=== PATIENT | male | born 1975 | race Two or more races ===

== ENCOUNTER 2020-05-21 18:15 | Emergency (ER) | payer OTHER ==
[~2020-05-21] VITALS: Ht 175.3 cm; Wt 86.2 kg
--- NOTE | 2020-05-21 19:25 | NUR ---
BIBS to the emergency department with complaints of ring stuck on his right ring finger for a month. He states he is attempted multiple times to cut the ring off unsuccessfully. He states been having "relationship problems" and this is the reason he is avoided medical care. Pt ambulatory to bed 13. was placed on a monitor, VSS. will cont to monitor,
[2020-05-21] MEDS ORDERED: BUPIVACAINE 0.5 % PF 150 MG/30 ML VIAL ONE (19:45)
[2020-05-21] MEDS ORDERED: LIDOCAINE 1% INJ 50 ML MDV IJ ONE ×2 (19:45→20:00)
[2020-05-21] MEDS ORDERED: CEFAZOLIN 1 GM in IV D5W 50 ML IV ONE (20:00)
[2020-05-21] MEDS ORDERED: BUPIVACAINE 0.5 % PF 150 MG/30 ML VIAL IJ ONE (20:00)
[2020-05-21] MEDS ORDERED: IV NS 0.9% 1,000 ML BAG IV ONE (20:00)
--- NOTE | 2020-05-21 20:10 | NUR ---
multiplex operator AT BED SIDE TO CUT THE RING
[2020-05-21] MEDS ORDERED: PIPERACILLIN /TAZOBACTAM 3.375 G VIAL IV ONE (20:21)
[2020-05-21 20:24] LABS: BASOPHILS # (AUTO) 0.1 /CMM (0.0-0.2); BASOPHILS % (AUTO) 0.8 % (0.0-2.0); EOSINOPHILS % (AUTO) 3.5 % (0.0-6.0); HEMATOCRIT 47 % (39-51); HEMOGLOBIN 15.6 g/dL (13.5-17.5); LYMPHOCYTES # (AUTO) 2.3 /CMM (0.8-4.8); LYMPHOCYTES % (AUTO) 32.4 % (20.0-44.0); MEAN CORPUSCULAR HGB CONC 33 g/dl (31.0-36.0); MEAN CORPUSCULAR VOLUME 88 fL (80-96); MONOCYTES # (AUTO) 0.6 /CMM (0.1-1.30); MONOCYTES % (AUTO) 8.3 % (2.0-12.0); NEUTROPHILS # (AUTO) 3.9 /CMM (1.8-8.9); PLATELET COUNT (AUTO) 344 /CMM (150-450); WHITE BLOOD COUNT (AUTO) 7.1 K/uL (4.3-11.0)
--- NOTE | 2020-05-21 20:29 | NUR ---
ancef 1G was not admonistered due to medication not available . Ulises treviño aware . ATB was replaced with zosyn
[2020-05-21] MEDS ORDERED: PIPERACILLIN /TAZOBACTAM 3.375 G in IV D5W 50 ML IV ONE (20:30)
[2020-05-21 20:36] LABS: CALCIUM, SERUM 8.9 mg/dL (8.5-10.1); CREATININE 0.8 mg/dL (0.6-1.3); POTASSIUM 3.7 mmol/L (3.5-5.1)
[2020-05-21 20:42] LABS: ALBUMIN 3.4 g/dL (3.4-5.0); BILIRUBIN,DIRECT 0.1 mg/dL (0.0-0.2); BILIRUBIN,TOTAL 0.5 mg/dL (0.2-1.0)
--- NOTE | 2020-05-21 21:00 | NUR ---
CALLED OFFICE OF DR JAGDEEP Nixon , LEFT VOICEMAIL
--- NOTE | 2020-05-21 21:17 | NUR ---
ATTEMPTED TO CONTACT DR. BARRETT. LEFT MESSAGE
[2020-05-21] MEDS ORDERED: ONDANSETRON HCL/PF 4 MG/2 ML VIAL IV ONE (21:30)
[2020-05-21] MEDS ORDERED: MORPHINE SULFATE INJ 2 MG/ML DISP.SYRIN IV ONE (21:30)
[2020-05-21] MEDS ORDERED: MORPHINE SULFATE INJ 4 MG/ML DISP.SYRIN ONE ×2 (21:33→22:37)
[2020-05-21] MEDS ORDERED: ONDANSETRON HCL/PF 4 MG/2 ML VIAL ONE (21:33)
--- NOTE | 2020-05-21 21:50 | NUR ---
CALLED OFFICE OF DR GANNON, LEFT VOICEMAIL
--- NOTE | 2020-05-21 22:26 | NUR ---
PAT QUAN NP SPEAKING WITH DR. BURRIS ([employer])
--- NOTE | 2020-05-21 22:30 | NUR ---
PAT MULLER SPEAKING WITH DR. VIEIRA
--- NOTE | 2020-05-21 22:41 | NUR ---
SPOKE WITH ANTONIO FROM [facility], NO BEDS AVAILABLE AT THIS TIME
--- NOTE | 2020-05-21 22:43 | NUR ---
SPOKE WITH SAUL FROM [facility]. NO HAND SURGEON AVAILABLE
--- NOTE | 2020-05-21 22:51 | NUR ---
SPOKE WITH CANDI FROM [facility]. WILL FAX CLINICAL INFORMATION PER REQUEST
[2020-05-21] MEDS ORDERED: VANCOMYCIN 1 GM in IV D5W 250 ML IV ONE (23:00)
[2020-05-21] MEDS ORDERED: MORPHINE SULFATE INJ 4 MG/ML DISP.SYRIN IV ONE (23:00)
--- NOTE | 2020-05-21 23:00 | NUR ---
CALLED [facility] SPOKE TO GONZALEZ REGARDING TRANSFER
--- NOTE | 2020-05-21 23:01 | NUR ---
Ela SANTACRUZ. SPEAKING WITH [facility]
--- NOTE | 2020-05-21 23:01 | NUR ---
Ela SANTACRUZ. SPEAKING WITH DR SAINI ([facility])
--- NOTE | 2020-05-21 23:03 | NUR ---
SPOKE WITH DARSHANA FROM [facility]. WILL FAX CLINICAL INFORMATION PER REQUEST
[2020-05-21] MEDS ORDERED: VANCOMYCIN 1 GM VIAL ONE (23:14)
--- NOTE | 2020-05-21 23:32 | NUR ---
PER DR. SAINI FROM [place], UNABLE TO ACCEPT CASE AT THIS TIME
--- NOTE | 2020-05-22 00:09 | NUR ---
ATTEMPTED TO CONTACT [employer] REQUESTING TRANSFER, ON HOLD FOR 45 MINUTES, NO ANSWER.
--- NOTE | 2020-05-22 00:14 | NUR ---
PER TARAS FROM [facility], [facility] IS UNABLE TO ACCEPT PATIENT.
[2020-05-22] MEDS ORDERED: ONDANSETRON HCL/PF 4 MG/2 ML VIAL ONE (02:23)
[2020-05-22] MEDS ORDERED: HYDROMORPHONE 1 MG/1 ML DISP.SYRIN ONE (02:23)
[2020-05-22] MEDS ORDERED: ONDANSETRON HCL/PF - ER 4 MG/2 ML VIAL IV ONE (02:30)
[2020-05-22] MEDS ORDERED: HYDROMORPHONE 1 MG/1 ML DISP.SYRIN IV ONE (02:30)
[2020-05-22] MEDS ORDERED: PIPERACILLIN /TAZOBACTAM 3.375 G in IV D5W 50 ML IV ONE (05:30)
[2020-05-22] MEDS ORDERED: PIPERACILLIN /TAZOBACTAM 3.375 G VIAL IV ONE (05:32)
--- NOTE | 2020-05-22 08:00 | NUR ---
CALLED [facility] DR. JARQUIN SPEAKING WITH ED .
--- NOTE | 2020-05-22 08:22 | NUR ---
BREAKFAST TRAY PROVIDED, TOLERATING PO WELL.
--- NOTE | 2020-05-22 08:29 | NUR ---
FRAN PERALTA SPOKE TO DR JARQUIN. CAN'T ACCEPT PATIENT D/T NO OR CAPABILITY.
[2020-05-22 08:36] VITALS: BP 122/61
--- NOTE | 2020-05-22 08:48 | NUR ---
Patient awake alert non distress patient AMA explained x 2 patient stated unable to wait and he will follow up PMD today . Given Cd copy and result .
--- NOTE | 2020-05-22 08:48 | NUR ---
Patient does not wish to proceed with medical care recommended by Dr. JARQUIN. Patient given information related to possible complications, up to and including , which could occur as a result of leaving the hospital at this time. Patient verbalizes understanding of risks involved due to leaving against medical advice. Patient has signed AMA form.
== END 2020-05-22 08:58 | disposition left against medical advice (07) ==
LOC: ER 18:26
DX: S60.445A External constriction of left ring finger, initial encounter (principal); S61.204A Unspecified open wound of right ring finger without damage to nail, initial encounter; L08.9 Local infection of the skin and subcutaneous tissue, unspecified; W49.04XA Ring or other jewelry causing external constriction, initial encounter; Y92.89 Other specified places as the place of occurrence of the external cause; R60.0 Localized edema; H54.62 Unqualified visual loss, left eye, normal vision right eye; Z20.822 Contact with and (suspected) exposure to COVID-19
CPT/HCPCS: 36415; 64450; 71045; 73140 ×2; 80048; 80076; 83605; 85025; 85730; 87040 ×2; 87426; 93005; 96365; 96366; 96367; 96375 ×2; 96376 ×2; 99285; C9803; J0690; J1170; J2270 ×2; J2405 ×3; J2543; J3370; J3490 ×2; J7030; J7060